=== PATIENT | female | born 1995 | race African-American/Black ===

== ENCOUNTER 2017-06-26 12:50 | Emergency (ER) | payer OTHER ==
[~2017-06-26] VITALS: Ht 162.6 cm; Wt 68.0 kg
[~2017-06-26 12:50] MED LIST: CEPHALEXIN500 MG ORAL; IBUPROFEN600 MG PO; KEFLEX500 MG ORAL; NKM; PRENATAL + DHA1 EAC1 PO; VICODIN 5-5001 EACH PO; ZOFRAN ODT8 MG ORAL; ZOFRAN4 MG ORAL
[2017-06-26] MEDS ORDERED: Acetaminophen 500mg (ES) tab ORAL ONE (13:15)
[2017-06-26] MEDS ORDERED: Lidocaine HCl 2% Jelly 5ml Tube TOPIC ONE (13:15)
--- NOTE | 2017-06-26 13:17 | Emergency Room Report ---
History of Present Illness General Chief Complaint: Foreign Body Source: Patient Present Illness HPI 22 yo female patient presents to ER complaining of FB in tongue. Patient reports backing of tongue ring is stuck in her tongue since this morning. Reports dose not know how incident occurred. Reports tongue ring placed 1 month ago without complications. Denies swallowing any part of tongue ring. Denies fever, chest pain, SOB. Allergies: Coded Allergies: No Known Allergies (Unverified , 10/16/12) Patient History Past Medical History: see triage record Last Menstrual Period: 06/18/17 Reviewed Nursing Documentation: PMH: Agreed; PSxH: Agreed Nursing Documentation-PMH Past Medical History: No Stated History Review of Systems All Other Systems: negative except mentioned in HPI Physical Exam Vital Signs Date Time Temp Pulse Resp B/P (MAP) Pulse Ox O2 Delivery O2 Flow Rate FiO2 06/26/17 13:01 97.2 95 22 139/90 98 Room Air 97.2 Sp02 EP Interpretation: reviewed, normal General Appearance: well appearing, alert, GCS 15, non-toxic, mild distress Head: normocephalic, atraumatic Eyes: bilateral eye normal inspection, bilateral eye PERRL ENT: hearing grossly normal, normal pharynx, no angioedema, normal voice, uvula midline, moist mucus membranes, other - tongue: metal tongue ring lodged in tongue, bar protruding from top of tongue, palpable but unable to visualize back of ring on inferior belly of tongue Neck: full range of motion Respiratory: lungs clear, normal breath sounds, no rhonchi, no respiratory distress, no accessory muscle use, no wheezing, speaking full sentences Cardiovascular #1: regular rate, rhythm, no edema Neurologic: alert, oriented x3, responsive, motor strength/tone normal, sensory intact Psychiatric: mood/affect normal Skin: no rash Medical Decision Making PA Attestation Dr. Mosley is my supervising Physician whom patient management has been discussed with. Diagnostic Impression: Primary Impression: Foreign body of tongue ER Course Pt presents to ED c/o FB in tongue. DDX considered but are not limited to FB, laceration, contusion, cellulitis. VITAL SIGNS are WNL, patient is afebrile ED INTERVENTIONS: Wound was cleaned and irrigated using normal saline. Local block using Lidocaine 1%, viscous lidocaine, and lidocaine jelly. PE: metal tongue ring lodged in tongue, bar protruding from top of tongue, palpable but unable to visualize back of ring on inferior belly of tongue Unable to remove tongue ring on multiple attempts by myself and Dr. Mosley. Consult Dr. Foss for removal of tongue ring. See his procedure note. Tongue ring removed. D/c on abx. Followup with PCP for wound check, DISCHARGE: Rx for Tylenol for pain Rx for Bactrim At this time pt is stable for d/c to home. Patient resting comfortably, in no acute distress, nontoxic appearing, talking without difficulty. Will provide with patient care instructions and any necessary prescriptions. Patient to take medication as instructed. Care plan and follow-up instructions provided. Work note provided to patient. Patient questions asked and answered. Patient instructed to follow-up with primary care provider in 2 days for wound check. ER precautions given. Patient instructed to return to ER immediately for any new or worsening of symptoms. Last Vital Signs Date Time Temp Pulse Resp B/P (MAP) Pulse Ox O2 Delivery O2 Flow Rate FiO2 06/26/17 13:01 97.2 95 22 139/90 98 Room Air 97.2 Disposition: HOME, SELF-CARE Condition: Stable Scripts Trimethoprim/Sulfamethoxazole 160/800* (BACTRIM DS TABLET*) 1 Each Tablet 1 TAB ORAL TWICE A DAY for 7 Days, #14 TAB Prov: Munir Leyva 06/26/17 Acetaminophen* (TYLENOL EXTRA STRENGTH*) 500 Mg Tablet 500 MG ORAL Q8H PRN for Prn Headache/Temp > 101, #30 TAB 0 Refills Prov: Munir Leyva 06/26/17 Patient Instructions: Tongue Laceration, [id number] Additional Instructions: Followup with primary care provider in 2-3 days for wound check. Take medications as directed. Patient questions asked and answered. ER precautions given, patient instructed to return to ER immediately for any new or worsening of symptoms. Munir Leyva Jun 26, 2017 13:16
[2017-06-26] MEDS ORDERED: Lidocaine 2% Visc 15ml soln ORAL ONE (14:00)
[2017-06-26] MEDS ORDERED: BACTRIM DS TAB1 EAC1 ORAL (14:38)
[2017-06-26] MEDS ORDERED: TYLENOL EXTRA500 MG ORAL (14:38)
[2017-06-26 14:43] VITALS: BP 130/89
--- NOTE | 2017-06-26 14:59 | Consultation ---
History of Present Illness General Date patient seen: Jun 26, 2017 Chief Complaint: Foreign Body Reason for Consultation: foreign body in tongue Present Illness HPI 22 year old female otherwise healthy had her tongue pierced a few months back without issues since until this morning when she woke up with excruciating tongue pain. she looked in the mirror and noted tongue ring malpositioned. she attempted removal but could not remove the piercing herself which seemed to be dislodged. as pain worsened she came to ED for evaluation. surgery called to help with complicated extraction of piercing. Allergies: Coded Allergies: No Known Allergies (Unverified , 10/16/12) Medication History Scheduled Cephalexin* (Keflex*), 500 MG ORAL EVERY 12 HOURS Cephalexin* (Keflex*), 500 MG ORAL Q6H No Known Medications* (NKM - No Known Medications*), 0 ., (Reported) Vit #91/Fe Fum/Fa/Dha ( + Dha Combo Pack), 1 EACH PO DAILY Trimethoprim/Sulfamethoxazole 160/800* (Bactrim Ds Tablet*), 1 TAB ORAL TWICE A DAY Scheduled PRN Acetaminophen* (Tylenol Extra Strength*), 500 MG ORAL Q8H PRN for Prn Headache/ Temp > 101 Ondansetron (Zofran), 4 MG ORAL Q6H PRN for Nausea & Vomiting Ondansetron Odt* (Zofran Odt*), 8 MG ORAL Q6H PRN for Nausea & Vomiting Patient History History Provided By: Patient Healthcare decision maker Resuscitation status Advanced Directive on File Past Medical/Surgical History Past Medical/Surgical History: (1) Urticaria (2) Urticaria (3) Urticaria (4) UTI (lower urinary tract infection) (5) (6) Trichomonas vaginitis (7) Urticaria (8) Foreign body of tongue Review of Systems All Other Systems: negative except mentioned in HPI Physical Exam General Appearance: no apparent distress, alert Lines, tubes and drains: peripheral HEENT: atraumatic, mucous membranes moist, PERRL Neck: supple Respiratory/Chest: normal breath sounds, no respiratory distress, no accessory muscle use Cardiovascular/Chest: normal peripheral pulses, normal rate Abdomen: normal bowel sounds, non tender, soft, no organomegaly Extremities: normal range of motion, non-tender, normal inspection Skin Exam: normal pigmentation, warm/dry Neurologic: alert, oriented x 3 Physical Exam Narrative tongue ring noted to be dislodged from initial insertion tract and imbedded into false tract at base of tongue. mild blood. tender. ball palpable in base of tongue. caro noted from top portion. Last 24 Hour Vital Signs Date Time Temp Pulse Resp B/P (MAP) Pulse Ox O2 Delivery O2 Flow Rate FiO2 06/26/17 13:01 97.2 95 22 139/90 98 Room Air 97.2 Height (Feet): 5 Height (Inches): 4.00 Weight (Pounds): 150 Assessment/Plan Problem List: (1) Foreign body of tongue Assessment & Plan: dislodged tongue ring in false tract. recommend removal salvador. can potentially become imbedded or worse into base of tongue. will do at bedside. consent obtained. thank you for this consultation. okay to d/c after removal. will be high risk for infection as patient was instructed. keep oral cavity clean with good care. return salvador if worsening condition. follow up with pcp ICD Codes: S00.552A - Superficial foreign body of oral cavity, initial encounter SNOMED: [id number] Qualifiers: Qualified Codes: S00.552A - Superficial foreign body of oral cavity, initial encounter Status: stable Lauri Foss Jun 26, 2017 14:59
--- NOTE | 2017-06-26 15:05 | Operative Note - PDOC ---
Operative Note Operative Note Date of Operation/Procedure: Jun 26, 2017 Pre-op Diagnosis: foreign body in tongue Procedure: removal of foreign body from tongue Post-op Diagnosis: same as pre-op Surgeon: patrick Anesthesia: local Specimen: none - tongue ring returned to patient at her request Complications: none Condition: stable Fluids: n/a Estimated Blood Loss: minimal Drains: none Implant(s) used?: No Indications for Procedure 22F with dislodged tongue ring into false tract and becoming impacted at base of tongue. removal recommended and indicated. consent obtained. risks, benefit, and alternatives discussed in detail. very concerning given location of foreign body and how it has become dislodged into false tract Description of Procedure patient made comfortable at bedside. local and topical anesthetic provided by ED physician/PA/team. mouth rinsed of blood and debris. mouth/teeth guards made using tongue depressor and gauze. tongue grasped using forceps and padding. caro of tongue ring identified from superior aspect of tongue. prior exit on inferior aspect noted but healing with scar tissue. manipulation of foreign body identified a false tract that had formed leading towards the posterior base of the tongue. could not remove through muscular layer of tongue safely. caro grasped and area at anterior base of tongue identified for extraction. small incision made and using alligator forceps the foreign body was grasped and removed safely without complication. mouth rinsed and hemostasis with pressure obtained. patient tolerated procedure well. Lauri Foss Jun 26, 2017 15:05
== END 2017-06-26 14:43 | disposition home or self-care (01) ==
LOC: EMR 14:15
DX: T18.0XXA Foreign body in mouth, initial encounter (principal); X58.XXXA Exposure to other specified factors, initial encounter; Y92.9 Unspecified place or not applicable
CPT/HCPCS: 10120; 99284